=== PATIENT | female | born 2000 | race African-American/Black ===

== ENCOUNTER 2021-12-31 22:16 | Emergency (ER) | payer BC, MEDICAID ==
[~2021-12-31] VITALS: Ht 170.2 cm; Wt 69.4 kg
[2021-12-31 22:53] LABS: HEMOGLOBIN 15.6 g/dL (11.5-16.0); MEAN PLATELET VOLUME 13.2 fL (9.0-12.2)
[2021-12-31 22:54] LABS: BASOPHILS % (AUTO) 0 % (0-10); EOSINOPHILS % (AUTO) 0 % (0-10); HEMATOCRIT 45 % (35-52); LYMPHOCYTES # (AUTO) 2.6 10^3/uL (1.0-4.0); LYMPHOCYTES % (AUTO) 24 % (12-44); MEAN CORPUSCULAR HEMOGLOBIN 30 pg (25-34); MEAN CORPUSCULAR HGB CONC 35 g/dL (32-36); MEAN CORPUSCULAR VOLUME 85 fL (80-99); MONOCYTES # (AUTO) 0.6 10^3/uL (0.0-1.0); MONOCYTES % (AUTO) 5 % (0-12); NEUTROPHILS # (AUTO) 7.3 10^3/uL (1.8-7.8); NEUTROPHILS % (AUTO) 69 % (42-75); PLATELET COUNT 231 10^3/uL (130-400); WHITE BLOOD COUNT 10.6 10^3/uL (4.3-11.0)
[2021-12-31 22:56] LABS: BILIRUBIN,URINE NEGATIVE (NEGATIVE); CLARITY,URINE CLEAR; COLOR,URINE YELLOW; GLUCOSE, URINE (UA) NEGATIVE (NEGATIVE); KETONES,URINE 2+ (NEGATIVE); LEUKOCYTE ESTERASE ,URINE NEGATIVE (NEGATIVE); NITRITE,URINE NEGATIVE (NEGATIVE); PROTEIN,URINE NEGATIVE (NEGATIVE)
[2021-12-31 22:58] LABS: ALBUMIN 4.8 GM/DL (3.2-4.5); CHLORIDE 97 MMOL/L (98-107); POTASSIUM 3.2 MMOL/L (3.6-5.0); SODIUM 134 MMOL/L (135-145)
[2021-12-31 23:00] LABS: AMYLASE 105 U/L (25-125); CALCIUM 9.9 MG/DL (8.5-10.1)
[2021-12-31] MEDS ORDERED: LACTATED RINGERS 1,000 ML IV ONE (23:00)
[2021-12-31] MEDS ORDERED: ONDANSETRON 4 MG/2 ML (SDV) Z0FRAN IVP ONE (23:00)
[2021-12-31 23:01] LABS: GLUCOSE 117 MG/DL (70-105); TOTAL PROTEIN 7.8 GM/DL (6.4-8.2)
[2021-12-31 23:02] LABS: CARBON DIOXIDE 22 MMOL/L (21-32)
[2021-12-31 23:03] LABS: BILIRUBIN,TOTAL 0.7 MG/DL (0.1-1.0)
[2021-12-31 23:04] LABS: ALKALINE PHOSPHATASE 76 U/L (40-136)
[2021-12-31 23:05] LABS: CREATININE SERUM 1.11 MG/DL (0.60-1.30); GFR ESTIMATED 72
[2021-12-31 23:06] LABS: BUN/CREATININE RATIO 9
[2021-12-31 23:07] LABS: MAGNESIUM 2.3 MG/DL (1.6-2.4)
[2021-12-31 23:08] LABS: ALANINE AMINOTRANSFERASE 24 U/L (0-55)
[2021-12-31 23:09] LABS: LIPASE 93 U/L (8-78)
[2021-12-31 23:12] LABS: AMPHETAMINE SCREEN, URINE NEGATIVE (NEGATIVE); BARBITURATE SCREEN URINE NEGATIVE (NEGATIVE); BENZODIAZEPINES SCREEN URINE NEGATIVE (NEGATIVE); CANNABINOID SCREEN, URINE POSITIVE (NEGATIVE); COCAINE SCREEN URINE NEGATIVE (NEGATIVE); METHADONE STAT NEGATIVE (NEGATIVE); METHAMPHETAMINE SCREEN URINE S NEGATIVE (NEGATIVE); OPIATE SCREEN URINE NEGATIVE (NEGATIVE); OXYCODONE STAT NEGATIVE (NEGATIVE); PROPOXYPHENE STAT NEGATIVE (NEGATIVE); TRICYCLIC ANTIDEPRESSANTS SCRE NEGATIVE (NEGATIVE)
[2021-12-31 23:12] LABS: ACETAMINOPHEN < 10 UG/ML (10-30)
[2021-12-31 23:23] LABS: BACTERIA,URINE TRACE /HPF; RBC,URINE 0-2 /HPF
--- NOTE | 2021-12-31 23:29 | ED GI ---
General Chief Complaint: Abdominal/GI Problems Stated Complaint: N/V Nursing Triage Note: PT AMB TO RM 8 ALONGSIDE MOTHER. PT C/O UPPER ABD PAIN, AND N/V X5-6 DAYS. PT REPORTS SHE CANT KEEP ANY FOOD/DRINKS DOWN, LAST VOMITED AT 0400 TODAY, LAST BM 3 DAYS AGO. PT HAS APPT W GI SPECIALIST ON MONDAY, CURRENTLY DX W GASTROPARESIS. PT A&OX4. Source of Information: Patient, Other (MOM) History of Present Illness Date Seen by Provider: Dec 31, 2021 Time Seen by Provider: 22:43 Initial Comments PT ARRIVES VIA POV FROM HOME WITH MOM--DROVE HERE FROM [place] C/O NAUSEA AND VOMITING AND EPIGASTRIC PAIN "EVERY SINCE I HAD MY IN 2019" STATES SHE "CAN'T EAT OR DRINK OR KEEP ANYTHING DOWN FOR THE LAST 5-6 DAYS" BUT ALSO STATES SHE "CAN'T EAT OR DRINK OR KEEP ANYTHING DOWN" SINCE 2019 SYMPTOMS ARE NO DIFFERENT TONIGHT IN ANY WAY HAS VOMITED X 2 TODAY--LAST EMESIS WAS AT 0400 THIS AM. STATES SHE HAS BEEN SIPPING ON WATER AND BODY ARMOUR DRINKS AND HAD A FEW BITES OF APPLESAUCE NO DIARRHEA PAIN IS MOSTLY WHEN SHE TRIES TO EAT OR DRINK ANYTHING NO FEVER PT IS VOIDING A NORMAL AMOUNT AND NO URINARY SYMPTOMS LAST BM 4-5 DAYS AGO--NORMAL FOR PT STATES SHE HAS LOST A TOTAL OF 12 LBS SINCE THIS STARTED PT STATES SHE "DOESN'T HAVE A REGULAR DR" --HAS SEEN A JAIME MAGUIRE AT [facility] IN [place] PT STATES SHE JUST GOES TO ER'S ALL THE TIME FOR THIS PROBLEM--HAS BEEN TO [facility], [place] ER MULTIPLE TIMES FOR THIS PT WENT TO [facility] ER IN [place] LAST WEEKEND FOR THIS STATES "NO ONE CAN FIGURE IT OUT" --STATES SHE HAS BEEN DIAGNOSED WITH "GASTROPARESIS" PT STATES SHE HAS AN APPOINTMENT WITH AN UNKNOWN GI SPECIALIST ON Monday01/04/22 --CAN'T REMEMBER NAME OF DR OR WHERE THE APPOINTMENT IS. STATES SHE HAD AN EGD "LAST YEAR SOMETIME" BUT UNKNOWN DR AT [facility] OR [facility]--CAN'T REMEMBER WHERE OR EXACTLY WHEN THIS WAS DONE PT STATES SHE HAS BEEN TAKING REGLAN FOR THIS--BOTTLE FILLED ON 12/29/21, WRITTEN BY HEMODIALYSIS CHARGE NURSE D. ANDREZ PT ALSO BRINGS IN RX'S FOR CIPRO AND FLAGYL PRESCRIBED ON 12/26/21--PT DOES NOT KNOW WHAT SHE WAS DIAGNOSED WITH--WH[facility] SE[facility] . STATES SHE DOES NOT TAKE ANY OTHER MEDICATIONS ON A DAILY BASIS EXCEPT REGLAN, AND DENIES HAVING ANY NAUSEA MEDICATIONS ON MED RECONCILIATION, PT WAS ALSO PRESCRIBED ZOFRAN AND METOPROLOL ON 12/26/21 WHEN SEEN AT [facility]. LMP--BEGAN YESTERDAY. STATES SHE HAD A NORMAL PERIOD 12/21/21 X 3 DAYS. PERIODS NORMALLY ONLY LAST 3 DAYS. NO CONTROL NO PRIOR DOCUMENT CONTROLLER OR PROBLEMS DENIES ANY OTHER MEDICAL PROBLEMS Allergies and Home Medications Allergies Coded Allergies: Sulfa (Sulfonamides) (Unverified Allergy, Mild, 10/05/09) Patient Home Medication List Capsaicin (Capsaicin) 60 Gm Cream..g., 60 GM TP TID Prescribed by: AMAIRANI MORGAN on 01/01/22101 Ondansetron (Ondansetron Odt) 8 Mg Tab.rapdis, 8 MG PO Q6H Prescribed by: AMAIRANI MORGAN on 01/01/22101 Pantoprazole Sodium (Protonix) 40 Mg Tablet.dr, 40 MG PO DAILY Prescribed by: AMAIRANI MORGAN on 01/01/22101 Promethazine HCl (Promethazine Suppository) 25 Mg Supp.rect, 25 MG RC Q6 Prescribed by: AMAIRANI MORGAN on 01/01/22101 Sucralfate (Carafate) 1 Gm Tablet, 1 GM PO QID Prescribed by: AMAIRANI MORGAN on 01/01/22101 Review of Systems Review of Systems Constitutional: no symptoms reported Respiratory: No Symptoms Reported Cardiovascular: No Symptoms Reported Gastrointestinal: See HPI, Abdominal Pain; Denies Constipated, Denies Diarrhea; Nausea, Poor Appetite, Poor Fluid Intake, Vomiting Genitourinary: No Symptoms Reported Musculoskeletal: no symptoms reported Skin: no symptoms reported Psychiatric/Neurological: No Symptoms Reported Endocrine: No Symptoms Reported Hematologic/Lymphatic: No Symptoms Reported Past Rykubvq-Vidhvw-Dnlroc Hx Patient Social History Tobacco Use?: No Use of E-Cig and/or Vaping dev: No Substance use?: No Additional substance use comme: DENIES BUT UDS + FOR MARIJUANA 12/31/21 Alcohol Use?: Yes Alcohol Frequency: Once in a while Immunizations Up To Date Influenza Vaccine Up-to-Date: Yes; Up-to-Date First/Initial COVID19 Vaccinat: NONE Second COVID19 Vaccination Jesus: NONE Third COVID19 Vaccination Date: NONE COVID19 Vaccine 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 oz. kg; 23.00 BMI Method: General Appearance: WD/WN, no apparent distress, other (PT SMILING, SITTING -STYLE AND TEXTING ON PHONE. WALKS UPRIGHT AND MOVES WITHOUT DIFFICULTY DOES NOT APPEAR ILL OR TO BE IN ANY DISCOMFORT OR DISTRESS. ) Respiratory: normal breath sounds, no respiratory distress, no accessory muscle use Cardiovascular: regular rate, rhythm, no murmur Gastrointestinal: normal bowel sounds, non tender, soft, no organomegaly, no pulsatile mass Extremities: normal inspection Back: no CVA tenderness Neurologic/Psychiatric: sail repairer II-XII nml as tested, no motor/sensory deficits, alert, normal mood/affect, oriented x 3 Skin: normal color, warm/dry; No rash; other (OLD ADHESIVE RESIDUE FROM MONITOR LEADS NOTED ON CHEST AND ABDOMEN. ) Progress/Results/Core Measures Results/Orders Lab Results Laboratory Tests Test 12/31/21 22:30 12/31/21 22:45 Range/Units White Blood Count 10.6 4.3-11.0 10^3/uL Red Blood Count 5.28 H 3.80-5.11 10^6/uL Hemoglobin 15.6 11.5-16.0 g/dL Hematocrit 45 35-52 % Mean Corpuscular Volume 85 80-99 fL Mean Corpuscular Hemoglobin 30 25-34 pg Mean Corpuscular Hemoglobin Concent 35 32-36 g/dL Red Cell Distribution Width 13.0 10.0-14.5 % Platelet Count 231 130-400 10^3/uL Mean Platelet Volume 13.2 H 9.0-12.2 fL Immature Granulocyte % (Auto) 0 % Neutrophils (%) (Auto) 69 42-75 % Lymphocytes (%) (Auto) 24 12-44 % Monocytes (%) (Auto) 5 0-12 % Eosinophils (%) (Auto) 0 0-10 % Basophils (%) (Auto) 0 0-10 % Neutrophils # (Auto) 7.3 1.8-7.8 10^3/uL Lymphocytes # (Auto) 2.6 1.0-4.0 10^3/uL Monocytes # (Auto) 0.6 0.0-1.0 10^3/uL Eosinophils # (Auto) 0.0 0.0-0.3 10^3/uL Basophils # (Auto) 0.0 0.0-0.1 10^3/uL Immature Granulocyte # (Auto) 0.0 0.0-0.1 10^3/uL Percent Immature Platelet Fraction 12.7 H 0.0-7.6 % Sodium Level 134 L 135-145 MMOL/L Potassium Level 3.2 L 3.6-5.0 MMOL/L Chloride Level 97 L 98-107 MMOL/L Carbon Dioxide Level 22 21-32 MMOL/L Anion Gap 15 H 5-14 MMOL/L Blood Urea Nitrogen 10 7-18 MG/DL Creatinine 1.11 0.60-1.30 MG/DL Estimat Glomerular Filtration Rate 72 BUN/Creatinine Ratio 9 Glucose Level 117 H 70-105 MG/DL Calcium Level 9.9 8.5-10.1 MG/DL Corrected Calcium 8.5-10.1 MG/DL Magnesium Level 2.3 1.6-2.4 MG/DL Total Bilirubin 0.7 0.1-1.0 MG/DL Aspartate Amino Transf (AST/SGOT) 27 5-34 U/L Alanine Aminotransferase (ALT/SGPT) 24 0-55 U/L Alkaline Phosphatase 76 40-136 U/L Total Protein 7.8 6.4-8.2 GM/DL Albumin 4.8 H 3.2-4.5 GM/DL Amylase Level 105 25-125 U/L Lipase 93 H 8-78 U/L Acetaminophen Level < 10 L 10-30 UG/ML Serum Alcohol < 10 <10 MG/DL Urine Color YELLOW Urine Clarity CLEAR Urine pH 6.0 5-9 Urine Specific [place] 1.015 L 1.016-1.022 Urine Protein NEGATIVE NEGATIVE Urine Glucose (UA) NEGATIVE NEGATIVE Urine Ketones 2+ H NEGATIVE Urine Nitrite NEGATIVE NEGATIVE Urine Bilirubin NEGATIVE NEGATIVE Urine Urobilinogen 0.2 < = 1.0 MG/DL Urine Leukocyte Esterase NEGATIVE NEGATIVE Urine RBC (Auto) 2+ H NEGATIVE Urine RBC 0-2 /HPF Urine WBC NONE /HPF Urine Squamous Epithelial Cells 2-5 /HPF Urine Crystals NONE /LPF Urine Bacteria TRACE /HPF Urine Casts NONE /LPF Urine Mucus SMALL H /LPF Urine Culture Indicated NO Urine Opiates Screen NEGATIVE NEGATIVE Urine Oxycodone Screen NEGATIVE NEGATIVE Urine Methadone Screen NEGATIVE NEGATIVE Urine Propoxyphene Screen NEGATIVE NEGATIVE Urine Barbiturates Screen NEGATIVE NEGATIVE Ur Tricyclic Antidepressants Screen NEGATIVE NEGATIVE Urine Phencyclidine Screen NEGATIVE NEGATIVE Urine Amphetamines Screen NEGATIVE NEGATIVE Urine Methamphetamines Screen NEGATIVE NEGATIVE Urine Benzodiazepines Screen NEGATIVE NEGATIVE Urine Cocaine Screen NEGATIVE NEGATIVE Urine Cannabinoids Screen POSITIVE H NEGATIVE My Orders Orders - AMAIRANI MORGAN DO Urine Bedside (12/31/21 22:43) Drug Screen Stat (Urine) (12/31/21 22:43) Ua Culture If Indicated (12/31/21 22:43) Ed Iv/Invasive Line Start (12/31/21 22:47) Acetaminophen (12/31/21 22:47) Alcohol (12/31/21 22:47) Amylase (12/31/21 22:47) Cbc With Automated Diff (12/31/21 22:47) Comprehensive Metabolic Panel (12/31/21 22:47) Lipase (12/31/21 22:47) Magnesium (12/31/21 22:47) Ondansetron Injection (Zofran Injectio (12/31/21 23:00) Ed Iv/Invasive Line Start (12/31/21 22:47) Lactated Ringers (Lr 1000 Ml Iv Solution (12/31/21 23:00) Ct Abdomen/Pelvis W (12/31/21 23:16) Iohexol Injection (Omnipaque 350 Mg/Ml 1 (12/31/21 23:45) Received Contrast (Hold Metformin- Contr (12/31/21 23:45) Sodium Chloride Flush (Catheter Flush Sy (12/31/21 23:45) Ns (Ivpb) (Sodium Chloride 0.9% Ivpb Bag (12/31/21 23:45) Medications Given in ED Current Medications Medications Dose Ordered Sig/Get Route Start Time Stop Time Status Last Admin Dose Admin Iohexol 100 ml ONCE ONCE IV 12/31/21 23:45 12/31/21 23:46 DC 12/31/21 23:47 87 ML Lactated Ringer's 1,000 ml @ 0 mls/hr Q0M ONCE IV 12/31/21 23:00 12/31/21 23:01 DC 12/31/21 22:56 0 MLS/HR Ondansetron HCl 4 mg ONCE ONCE IVP 12/31/21 23:00 12/31/21 23:01 DC 12/31/21 22:56 4 MG Sodium Chloride 10 ml NEEDED PRN IV 12/31/21 23:45 12/31/21 23:47 10 ML Sodium Chloride 100 ml ONCE ONCE IV 12/31/21 23:45 12/31/21 23:46 DC 12/31/21 23:47 80 ML Vital Signs/I&O 12/31/21 22:26 Temp 36.2 Pulse 89 Resp 20 B/P (MAP) 140/113 (122) Pulse Ox 99 O2 Delivery Room Air Blood Pressure Mean: 122 Progress Progress Note : Progress Note GIVEN IV FLUIDS NO VOMITING OR PAIN DURING ER STAY DISCUSSION WITH PT AND MOTHER REGARDING FOLLOW UP, ESTABLISHING WITH A PRIMARY CARE DRDorian ETC. MOM AND PT REPORT "THERE'S NO ONE ANYWHERE AROUND THAT WE TRUST" Departure Impression Primary Impression: CHRONIC EPIGASTRIC PAIN WITH NAUSEA AND VOMITING Additional Impressions: Marijuana use POSSIBLE CANNABIS HYPEREMESIS SYNDROME Constipation Disposition: 01 HOME, SELF-CARE Condition: Stable Departure-Patient Inst. Decision time for Depature: 00:50 Referrals: NO,LOCAL PHYSICIAN (PCP/Family) Primary Care Physician Patient Instructions: Abdominal Pain, Adult ED, Cannabis Hyperemesis Syndrome, Constipation, Adult (DC), Nausea and Vomiting, Adult (DC) Add. Discharge Instructions: CONTINUE REGLAN PRESCRIBED LOTS OF CLEAR LIQUIDS, SIPS AT A TIME--WATER, BROTH, JELLO, GATORADE NO MARIJUANA TAKE MIRALAX DAILY--YOU MAY USE EVERY 1-2 HOURS UNTIL YOU HAVE A BM, THEN USE DAILY KEEP YOUR APPOINTMENT WITH GI SPECIALIST ON MONDAY. KEEP YOUR OTHER SPECIALIST APPOINTMENTS SCHEDULED FOLLOW UP WITH A REGULAR DR FOR ROUTINE MEDICAL CARE All discharge instructions reviewed with patient and/or family. Voiced understanding. Scripts Pantoprazole Sodium (Protonix) 40 Mg Tablet.dr 40 MG PO DAILY, #15 TAB Prov: AMAIRANI MORGAN DO 01/01/22 Promethazine HCl (Promethazine Suppository) 25 Mg Supp.rect 25 MG RC Q6 for Nausea/Vomiting, #10 SUPP.RECT Prov: AMAIRANI MORGAN DO 01/01/22 Ondansetron (Ondansetron Odt) 8 Mg Tab.rapdis 8 MG PO Q6H, #10 TAB Prov: AMAIRANI MORGAN DO 01/01/22 Capsaicin (Capsaicin) 60 Gm Cream..g. 60 GM TP TID for Nausea/Vomiting, #1 TUBE Prov: AMAIARNI MORGAN DO 01/01/22 Sucralfate (Carafate) 1 Gm Tablet 1 GM PO QID, #60 TAB Prov: AMAIRANI MORGAN DO 01/01/22 AMAIRANI MORGAN DO Dec 31, 2021 23:29
[2021-12-31] MEDS ORDERED: NS 100 ML (IVPB) BAG IV ONE (23:45)
[2021-12-31] MEDS ORDERED: CATHETER FLUSH 10 ML SYR IV PRN (23:45)
[2021-12-31] MEDS ORDERED: IOHEXOL 350 MG/ML 100 ML (OMNIPAQUE 350) VIAL IV ONE (23:45)
[2021-12-31] MEDS ORDERED: HOLD METFORMIN - RECEIVED CONTRAST 20 ML VIAL IV SCH (23:45)
[2022-01-01] MEDS ORDERED: ONDA8TAB13 PO (01:02)
[2022-01-01] MEDS ORDERED: SUCR1TAB36 PO (01:02)
[2022-01-01] MEDS ORDERED: PANT40TA2 PO (01:02)
[2022-01-01] MEDS ORDERED: CAPS60CR4 TP (01:02)
[2022-01-01] MEDS ORDERED: PROM25SU44 RC (01:02)
[2022-01-01 01:08] VITALS: BP 132/78
--- NOTE | 2022-01-01 07:07 | Diagnostic Imaging Report ---
PROCEDURE: CT abdomen and pelvis with contrast. TECHNIQUE: Multiple contiguous axial images were obtained through the abdomen and pelvis after administration of intravenous contrast. Auto Exposure Controls were utilized during the CT exam to meet ALARA standards for radiation dose reduction. All CT scans use one or more of the following dose optimizing techniques: automated exposure control, MA and/or KvP adjustment based on patient size and exam type or iterative reconstruction. INDICATION: 21-year-old female, epigastric pain with nausea and vomiting. CORRELATION STUDY: None. FINDINGS: LOWER THORAX: Clear. LIVER: Unremarkable. GALLBLADDER: Present and unremarkable. No bile duct dilatation. SPLEEN: Unremarkable. PANCREAS: Unremarkable. ADRENAL GLANDS: Unremarkable. KIDNEYS: Normal configuration. No calcification or obstruction. ABDOMINAL AORTA: Unremarkable, nonaneurysmal. GASTROINTESTINAL TRACT: Stomach mildly distended with gas and fluid. Slightly folded on itself proximally. No small bowel obstruction. There is mild distention of the colon with mild stool retention. Partially visualized appendix unremarkable. No abdominal ascites and/or free air. High density contents in the distal colon could reflect of contrast. URINARY BLADDER: Unremarkable. REPRODUCTIVE: Vaginal tampon. Uterus and adnexa otherwise unremarkable. Trace pelvic fluid within physiologic range. OSSEOUS STRUCTURES: No acute abnormality. OTHER: None. IMPRESSION: 1. Negative for acute abnormality of the abdomen or pelvis. Dictated by: Dictated on workstation # [id number]
== END 2022-01-01 01:11 | disposition home or self-care (01) ==
LOC: EDUNIT# 22:16 → ER 22:19
DX: K59.00 Constipation, unspecified (principal); R11.2 Nausea with vomiting, unspecified; G89.29 Other chronic pain; F12.90 Cannabis use, unspecified, uncomplicated
CPT/HCPCS: 74177; 80053; 80306; 81000; 82150; 83690; 83735; 84703; 85025; 99284; G0480 ×2; 36415; 80320; 80329

== ENCOUNTER 2022-06-21 11:56 | Emergency (ER) | payer BC, MEDICAID ==
[~2022-06-21] VITALS: Ht 173 cm; Wt 67.0 kg
[~2022-06-21 11:56] MED LIST: CAPS60CR4 TP; ONDA8TAB13 PO; PANT40TA2 PO; PROM25SU44 RC; SUCR1TAB36 PO
--- NOTE | 2022-06-21 12:35 | ED General ---
General Chief Complaint: Abdominal/GI Problems Stated Complaint: ABD PAIN,N/V,CONSTIPATION Nursing Triage Note: PT STATES UPPER ABD PAIN AND VOMITING FOR ABOUT A WEEK, CONSTIPATION Source of Information: Patient, Family (father) (JASMIN PHILIP MED STUDENT) History of Present Illness Date Seen by Provider: Jun 21, 2022 Time Seen by Provider: 12:15 Initial Comments Marilyn Culp is a 22 yo female who presents for epigastric pain, vomiting and constipation. Pt has hx abdominal pain since an emergency c/s in 2018 for distress. She states she has seen multiple providers and taken multiple medications with no relief. She has epigastric and left sided abdominal pain that is throbbing and she rates a 5/10 currently. The pain is intermittent and sometimes goes away for several weeks then reappears. The current episode of epi gastric pain has been ongoing for the last week. She has associated nausea, vomiting and constipation. She states she has not had a BM in one week. Yesterday she was seen at the ER in [place] and was told to take mag citrate, but this is currently recalled. She was also told her potassium was low, so she was sent potassium tablets to pharmacy. Pt has tried miralax and three suppositories with no relief. She has also tried zainab seltzer for her nausea, but has been unable to keep solids or liquids down for the last week. She states she had an EGD in [place] about a year ago and was told she "digests things slow". She provided a list of medications she has tried for her epigastric pain which included ondansetron, sucralfate, metronidazole, ciprofloxacin, pantoprazole, promethegan and omeprazole. Pt denies fever, chills, recent illness or change in diet, headache, blurry vision, dysuria, frequency, numbness or weakness. Timing/Duration: 1 Week, Intermittent Severity: Moderate Modifying Factors: worse with Eating Associated Systoms: Loss of Appetite, Nausea/Vomiting (JASMIN PHILIP MED STUDENT) Allergies and Home Medications Allergies Coded Allergies: Sulfa (Sulfonamides) (Unverified Allergy, Mild, 10/05/09) Patient Home Medication List Home Medication List Reviewed: Yes (TRAY RILEY MD) Capsaicin (Capsaicin) 60 Gm Cream..g., 60 GM TP TID Prescribed by: AMAIRANI WILLIAM on 01/01/22101 Ondansetron (Ondansetron Odt) 8 Mg Tab.rapdis, 8 MG PO Q6H Prescribed by: AMAIRANI WILLIAM on 01/01/22101 Pantoprazole Sodium (Protonix) 40 Mg Tablet.dr, 40 MG PO DAILY Prescribed by: AMAIRANI WILLIAM on 01/01/22101 Peg/Electrolytes (Golytely Solution) 236-22.74G Soln, 2,000 ML PO ONCE Prescribed by: TRAY RILEY on 06/21/22 1411 Promethazine HCl (Promethazine Suppository) 25 Mg Supp.rect, 25 MG RC Q6 Prescribed by: AMAIRANI WILLIAM on 01/01/22101 Sucralfate (Carafate) 1 Gm Tablet, 1 GM PO QID Prescribed by: AMAIRANI WILLIAM on 01/01/22101 Review of Systems Review of Systems Constitutional: No chills; dizziness; No fever EENTM: No blurred vision, No vision loss Cardiovascular: No chest pain, No palpitations Gastrointestinal: abdominal pain, constipation; No diarrhea; loss of appetite, nausea, vomiting Genitourinary: No dysuria, No frequency Musculoskeletal: No back pain, No muscle pain Skin: No lesions, No lumps, No rash Psychiatric/Neurological: Denies Headache, Denies Numbness, Denies Weakness Hematologic/Lymphatic: No Symptoms Reported Immunological/Allergic: no symptoms reported (JASMIN PHILIP) Past Ajbikuz-Wgkpqp-Tdgyfa Hx Patient Social History Tobacco Use?: No Substance use?: Yes Substance type: Marijuana Alcohol Use?: No (JASMIN PHILIP) Immunizations Up To Date First/Initial COVID19 Vaccinat: NONE Second COVID19 Vaccination Jesus: NONE Third COVID19 Vaccination Date: NONE (JASMIN PHILIP STUDENT) Past Medical History Surgery/Hospitalization HX: ABD PAIN IN THE PAST, C SECTION Surgeries: Yes (EGD; X 1) Section Respiratory: No Cardiac: No Neurological: No Last Menstrual Period: Jun 14, 2022 (JASMIN PHILIP STUDENT) Physical Exam Vital Signs Vital Signs - First Documented 06/21/22 12:01 Temp 36.7 Pulse 81 Resp 18 B/P (MAP) 149/76 (100) Pulse Ox 100 O2 Delivery Room Air (TRAY RILEY MD) Vital Signs Capillary Refill : Less Than 3 Seconds (JASMIN PHILIP MED STUDENT) Height, Weight, BMI Height: '" Weight: lbs. oz. kg; 22.00 BMI Method: General Appearance: No Apparent Distress, WD/WN HEENT: PERRL/EOMI, Other (dry mucous membranes) Neck: Full Range of Motion, Normal Inspection Respiratory: Chest Non Tender, Lungs Clear, Normal Breath Sounds Cardiovascular: Regular Rate, Rhythm, No Murmur Gastrointestinal: Abnormal Bowel Sounds (hypoactive bowel sounds), Tenderness (epigastric and LUQ) Extremity: Normal Inspection, Non Tender, No Pedal Edema Neurologic/Psychiatric: Alert, Oriented x3, Normal Mood/Affect Skin: Normal Color, Warm/Dry Lymphatic: No Adenopathy (JASMIN PHILIP A MED STUDENT) Focused Exam Lactate Level 06/21/22 13:45: Lactic Acid Level 1.81 (TRAY RILEY MD) Lactic Acid Level Laboratory Tests Test 06/21/22 13:45 Lactic Acid Level 1.81 MMOL/L (0.50-2.00) (TRAY RILEY MD) Progress/Results/Core Measures Suspected Sepsis SIRS Temperature: Pulse: 81 Respiratory Rate: 18 Blood Pressure 149 /76 Mean: 100 Laboratory Tests 06/21/22 12:20: (JASMIN PHILIP MED STUDENT) Results/Orders Lab Results Laboratory Tests Test 06/21/22 12:20 06/21/22 13:45 Range/Units Sodium Level 138 135-145 MMOL/L Potassium Level 3.3 L 3.6-5.0 MMOL/L Chloride Level 100 98-107 MMOL/L Carbon Dioxide Level 17 L 21-32 MMOL/L Anion Gap 21 H 5-14 MMOL/L Blood Urea Nitrogen 19 H 7-18 MG/DL Creatinine 1.23 0.60-1.30 MG/DL Estimat Glomerular Filtration Rate 63 BUN/Creatinine Ratio 15 Glucose Level 83 70-105 MG/DL Calcium Level 9.7 8.5-10.1 MG/DL Corrected Calcium 8.5-10.1 MG/DL Total Bilirubin 0.9 0.1-1.0 MG/DL Aspartate Amino Transf (AST/SGOT) 25 5-34 U/L Alanine Aminotransferase (ALT/SGPT) 30 0-55 U/L Alkaline Phosphatase 70 40-136 U/L Total Protein 8.5 H 6.4-8.2 GM/DL Albumin 4.9 H 3.2-4.5 GM/DL Lipase 16 8-78 U/L Serum Test, Qualitative NEGATIVE NEGATIVE Lactic Acid Level 1.81 0.50-2.00 MMOL/L (TRAY RILEY MD) My Orders Orders - TRAY RILEY MD Ed Iv/Invasive Line Start (06/21/22 12:58) Comprehensive Metabolic Panel (06/21/22 12:58) Lipase (06/21/22 12:58) Hcg,Qualitative Serum (06/21/22 12:58) Ns Iv 1000 Ml (Sodium Chloride 0.9%) (06/21/22 13:00) Metoclopramide Injection (Reglan Injecti (06/21/22 13:00) Diphenhydramine Injection (Benadryl Inje (06/21/22 13:00) Lactic Acid Analyzer (06/21/22 13:26) Lactated Ringers (Lr 1000 Ml Iv Solution (06/21/22 13:30) (TRAY RILEY MD) Medications Given in ED Current Medications Medications Dose Ordered Sig/Get Route Start Time Stop Time Status Last Admin Dose Admin Diphenhydramine HCl 25 mg ONCE ONCE IVP 06/21/22 13:00 06/21/22 13:02 DC 06/21/22 13:10 25 MG Metoclopramide HCl 5 mg ONCE ONCE IVP 06/21/22 13:00 06/21/22 13:02 DC 06/21/22 13:10 5 MG (TRAY RILEY MD) Vital Signs/I&O 06/21/22 12:01 Temp 36.7 Pulse 81 Resp 18 B/P (MAP) 149/76 (100) Pulse Ox 100 O2 Delivery Room Air (TRAY RILEY MD) Vital Signs/I&O Capillary Refill : Less Than 3 Seconds (JASMIN PHILIP MED STUDENT) Blood Pressure Mean: 100 Progress Note : Time: 12:58 Progress Note Will start IV fluids and order CMP to check potassium. 1312: K+ 3.3. (JASMIN PHILIP MED STUDENT) Progress Note : Time: 14:02 Progress Note 22yo female to the ER with chronic epigastric discomfort and nausea. Last ER visit was in December of 2021. Per patient's report she has been to multiple ER's. It doesnt sound like she has stuck with one provider for any type of consistent work up. She has been on multiple anti-nausea medications and states that they don't really work. SHe does smoke THC - initially states "several times a week" but is vague about actual amounts. Then states "it has been a few weeks" since she smoked. SHe claimed to not know of cannabis hyperemesis syndrome - although her note from visit in December clearly reflect Dr William talked to her about this. No prior abdominal surgeries other than a . no f/c. she does complain of constipation (but has had poor appetite). some liquid stool. Was seen in [place], [place] ED last night. Rx for protonix. Needs a PCP and further work up and possibly referral to GI. Has been told in the past she has "gastroparesis". Home with another rx of reglan as she states the reglan, benadryl combo given today has made her feel better. labs reassuring. exam benign. (TRAY RILEY MD) Departure Impression Primary Impression: Epigastric abdominal tenderness Qualified Codes: R10.826 - Epigastric rebound abdominal tenderness Additional Impression: Chronic nausea Disposition: 01 HOME, SELF-CARE Condition: Improved Departure-Patient Inst. Decision time for Depature: 14:07 (TRAY RILEY MD) Referrals: [facility],LOCAL PHYSICIAN (PCP) Primary Care Physician Add. Discharge Instructions: You need find a primary care doctor so they can do a full work up of your stomach pain (further labs such as thyroid function, B12 levels - that the ER cannot do) and possibly send you to a specialist if you need one. Drink gatorade or other electrolyte drinks as well as water to stay hydrated. [place] foods to start today - nothing heavy or spicy or greasy. Take reglan pills if you have nausea. with one benadryl every 6 hours. Stop marijuana use. It can cause persistent vomiting and upset stomach. Take the potassium tablets that were sent to the pharmacy by the [place] ER provider. Go-Lytely, 1/2 gallon tonight while at home to help clean out your colon. Drink water with this to stay hydrated. It can cause some mild abdominal cramping. Return to the Emergency Department for any fevers, worsening pain, bloody stools or vomit, or any other emergent, concerning symptoms. Scripts Peg/Electrolytes (Golytely Solution) 236-22.74G Soln 2000 ML PO ONCE, #4000 EA Prov: TRAY RILEY MD 06/21/22 Verification and Attestation of Medical Student E/M Service A medical student performed and documented this service in my presence. I reviewed and verified all information documented by the medical student and made modifications to such information, when appropriate. I personally performed the physical exam and medical decision making. Tray Riley, Jun 21, 2022,14:11 (TRAY RILEY MD) JASMIN PHILIP MED STUDENT Jun 21, 2022 12:35 TRAY RILEY MD Jun 21, 2022 14:10
[2022-06-21] MEDS ORDERED: diphenhydrAMINE 50 MG/ML INJ (BENADRYL) IVP ONE (13:00)
[2022-06-21] MEDS ORDERED: METOCLOPRAMIDE INJ 10 MG/2 ML (REGLAN) IVP ONE (13:00)
[2022-06-21] MEDS ORDERED: NS IV 1000 ML 1,000 ML IV SCH (13:00)
[2022-06-21 13:08] LABS: ALBUMIN 4.9 GM/DL (3.2-4.5)
[2022-06-21 13:09] LABS: CHLORIDE 100 MMOL/L (98-107); POTASSIUM 3.3 MMOL/L (3.6-5.0); SODIUM 138 MMOL/L (135-145)
[2022-06-21 13:10] LABS: CALCIUM 9.7 MG/DL (8.5-10.1)
[2022-06-21 13:11] LABS: GLUCOSE 83 MG/DL (70-105); TOTAL PROTEIN 8.5 GM/DL (6.4-8.2)
[2022-06-21 13:12] LABS: CARBON DIOXIDE 17 MMOL/L (21-32)
[2022-06-21 13:13] LABS: BILIRUBIN,TOTAL 0.9 MG/DL (0.1-1.0)
[2022-06-21 13:15] LABS: ALKALINE PHOSPHATASE 70 U/L (40-136); CREATININE SERUM 1.23 MG/DL (0.60-1.30); GFR ESTIMATED 63
[2022-06-21 13:16] LABS: BUN/CREATININE RATIO 15
[2022-06-21 13:18] LABS: ALANINE AMINOTRANSFERASE 30 U/L (0-55); LIPASE 16 U/L (8-78)
[2022-06-21] MEDS ORDERED: LACTATED RINGERS 1,000 ML IV SCH (13:30)
[2022-06-21] MEDS ORDERED: CLT4KB PO ×2 (14:11→15:11)
[2022-06-21 15:28] VITALS: BP 127/77
== END 2022-06-21 15:28 | disposition home or self-care (01) ==
LOC: EDUNIT# 11:56 → ER 11:58
DX: R10.13 Epigastric pain (principal); R10.12 Left upper quadrant pain; R11.2 Nausea with vomiting, unspecified; Z28.310 Unvaccinated for COVID-19
CPT/HCPCS: 36415; 80053; 83605; 83690; 84703

== ENCOUNTER 2023-08-25 09:55 | Emergency (ER) | payer BC, MEDICAID ==
[~2023-08-25] VITALS: Ht 172 cm; Wt 76.0 kg
[~2023-08-25 09:55] MED LIST changes: +CLT4KB PO
[2023-08-25 10:36] LABS: AMORPHOUS SEDIMENT,UR FEW AMOR URATES /LPF; BACTERIA,URINE NEGATIVE /HPF; BILIRUBIN,URINE 1+ (NEGATIVE); CLARITY,URINE CLEAR; COLOR,URINE YELLOW; GLUCOSE, URINE (UA) NEGATIVE (NEGATIVE); KETONES,URINE 4+ (NEGATIVE); LEUKOCYTE ESTERASE ,URINE NEGATIVE (NEGATIVE); NITRITE,URINE NEGATIVE (NEGATIVE); PH,URINE 5.5 (5-9); PROTEIN,URINE 1+ (NEGATIVE); RBC,URINE RARE /HPF; WBC,URINE 0-2 /HPF
[2023-08-25] MEDS ORDERED: NS IV 1000 ML 1,000 ML IV STA ×2 (11:04→11:51)
[2023-08-25 11:13] LABS: HEMOGLOBIN 13.6 g/dL (11.5-16.0); MONOCYTES # (AUTO) 0.2 10^3/uL (0.0-1.0); MONOCYTES % (AUTO) 2 % (0-12)
[2023-08-25 11:15] LABS: BASOPHILS % (AUTO) 0 % (0-10); EOSINOPHILS % (AUTO) 0 % (0-10); HEMATOCRIT 40 % (35-52); LYMPHOCYTES # (AUTO) 1.3 10^3/uL (1.0-4.0); LYMPHOCYTES % (AUTO) 12 % (12-44); MEAN CORPUSCULAR HEMOGLOBIN 30 pg (25-34); MEAN CORPUSCULAR HGB CONC 34 g/dL (32-36); MEAN CORPUSCULAR VOLUME 87 fL (80-99); NEUTROPHILS # (AUTO) 9.4 10^3/uL (1.8-7.8); NEUTROPHILS % (AUTO) 86 % (42-75); PLATELET COUNT 174 10^3/uL (130-400); WHITE BLOOD COUNT 10.9 10^3/uL (4.3-11.0)
[2023-08-25 11:16] LABS: SMEAR SCAN COMMENT YES
[2023-08-25 11:18] LABS: ALBUMIN 4.3 GM/DL (3.2-4.5)
[2023-08-25 11:19] LABS: POTASSIUM 3.2 MMOL/L (3.6-5.0)
[2023-08-25 11:20] LABS: CALCIUM 9.2 MG/DL (8.5-10.1)
[2023-08-25 11:21] LABS: TOTAL PROTEIN 8.1 GM/DL (6.4-8.2)
[2023-08-25 11:23] LABS: BILIRUBIN,TOTAL 0.5 MG/DL (0.1-1.0)
[2023-08-25 11:25] LABS: CREATININE SERUM 0.81 MG/DL (0.60-1.30)
[2023-08-25 11:25] LABS: AMPHETAMINE SCREEN, URINE NEGATIVE (NEGATIVE); BARBITURATE SCREEN URINE NEGATIVE (NEGATIVE); CANNABINOID SCREEN, URINE POSITIVE (NEGATIVE); COCAINE SCREEN URINE NEGATIVE (NEGATIVE); METHADONE STAT NEGATIVE (NEGATIVE); OPIATE SCREEN URINE NEGATIVE (NEGATIVE); OXYCODONE STAT NEGATIVE (NEGATIVE); TRICYCLIC ANTIDEPRESSANTS SCRE NEGATIVE (NEGATIVE)
--- NOTE | 2023-08-25 11:29 | ED Abdominal Pain ---
General Chief Complaint: Abdominal/GI Problems Stated Complaint: ABD PAIN/CONSTIPATION/VOMITING Nursing Triage Note: PT AMB TO RM 9 PT CO OF CONSTIPATION, N/V FOR APPROX 3 DAYS. PT STATES NO BM FOR 4 DAYS. PT IS APPROX 14WEEKS . PT STATES WAS SEEN AT [facility] YESTERDAY FOR SAME CO AND WAS PRESCRIBED REGLAN Source of Information: Patient Exam Limitations: No Limitations (LASHAY CHUA) History of Present Illness Date Seen by Provider: Aug 25, 2023 Time Seen by Provider: 11:26 Initial Comments Patient is a 23-year-old female with a history of constipation who is currently 14 weeks G2, P1 who presents ED with abdominal pain and vomiting. Patient states she started having pain in her upper abdomen and left lower quadrant yesterday. Pain is described as crampy and fairly intermittent. She has had at least 10 episodes of vomiting nonbilious without hematemesis since yesterday. She states her last bowel movement was 5 days ago. Is currently taking MiraLAX, Colace and suppositories. She has had issues with constipation for the past 2 years. There is concern for gastroparesis. She states she feels dehydrated. She is currently following [facility]. [place]rieta at [place]. She is currently on promethazine and recently prescribed Reglan. She denies of any vaginal discharge, vaginal bleeding, pain with urination, frequent urination, fever, chills, chest pain, shortness of breath, headache or dizziness. No history of previous abdominal surgery. Denies history of diabetes or hypertension. (LASHAY CHUA) Allergies and Home Medications Allergies Coded Allergies: Sulfa (Sulfonamides) (Unverified Allergy, Mild, 10/05/09) Patient Home Medication List Home Medication List Reviewed: Yes (LASHAY CHUA) Capsaicin (Capsaicin) 60 Gm Cream..g., 60 GM TP TID Prescribed by: AMAIRANI MORGAN on 01/01/22101 Ondansetron (Ondansetron Odt) 8 Mg Tab.rapdis, 8 MG PO Q6H Prescribed by: AMAIRANI MORGAN on 01/01/22101 Pantoprazole Sodium (Protonix) 40 Mg Tablet.dr, 40 MG PO DAILY Prescribed by: AMAIRANI MROGAN on 01/01/22101 Peg/Electrolytes (Golytely Solution) 236-22.74G Soln, 2,000 ML PO ONCE Prescribed by: TRAY GRAYSON on 06/21/22 1511 Promethazine HCl (Promethazine Suppository) 25 Mg Supp.rect, 25 MG RC Q6 Prescribed by: AMAIRANI MORGAN on 01/01/22101 Sucralfate (Carafate) 1 Gm Tablet, 1 GM PO QID Prescribed by: AMAIRANI MORGAN on 01/01/22101 Review of Systems Review of Systems Constitutional: No chills, No diaphoresis EENTM: No Double Vision, No Eye Pain Respiratory: Denies Cough, Denies Orthopnea Gastrointestinal: Abdominal Pain, Constipated; Denies Diarrhea; Nausea, Vomiting Genitourinary: Denies Burning, Denies Discharge, Denies Drainage, Denies Frequency, Denies Flank Pain, Denies Hematuria Musculoskeletal: No back pain, No joint pain Skin: No change in color, No change in hair/nails (LASHAY CHUA) All Other Systems Reviewed Negative Unless Noted: Yes (LASHAY CHUA) Past Juysetn-Xtvwmb-Fxlaec Hx Patient Social History Tobacco Use?: No Substance use?: No Alcohol Use?: No Pt feels they are or have been: No (LASHAY CHUA) Immunizations Up To Date First/Initial COVID19 Vaccinat: NONE Second COVID19 Vaccination Jesus: NONE Third COVID19 Vaccination Date: NONE (LASHAY CHUA) Past Medical History Surgery/Hospitalization HX: ABD PAIN IN THE PAST, C SECTION Surgeries: Yes (EGD; X 1) Section Respiratory: No Cardiac: No Neurological: No Expected Date of Delivery: February 20, 2024 Last Menstrual Period: May 10, 2023 (LASHAY CHUA) Physical Exam Vital Signs Vital Signs - First Documented 08/25/23 08/25/23 10:10 13:42 Temp 35.4 Pulse 92 Resp 18 B/P (MAP) 118/65 Pulse Ox 99 O2 Delivery Room Air (ERIK ONEIL MD) Vital Signs Capillary Refill : Less Than 3 Seconds (LASHAY CHUA) Height/Weight/BMI Height: '" Weight: lbs. oz. kg; 25.00 BMI Method: General Appearance: WD/WN, no apparent distress HEENT: PERRL/EOMI, normal ENT inspection, TMs normal, pharynx normal Neck: non-tender, full range of motion, supple Respiratory: chest non-tender, lungs clear, normal breath sounds, no respiratory distress, no accessory muscle use Cardiovascular: regular rate, rhythm, no edema, no gallop, no JVD Gastrointestinal: normal bowel sounds, soft, tenderness (Epigastric tenderness, left lower quadrant tenderness. Normal bowel sound throughout. No rebound or guarding.) Extremities: normal range of motion, non-tender, normal inspection, no pedal edema Back: normal inspection, no CVA tenderness Neurologic/Psychiatric: dockmaster II-XII nml as tested, no motor/sensory deficits, alert, normal mood/affect, oriented x 3 Skin: normal color, warm/dry Lymphatic: no adenopathy (LASHAY CHUA) Progress/Results/Core Measures Results/Orders Lab Results Laboratory Tests Test 08/25/23 10:14 08/25/23 11:00 Range/Units Urine Color YELLOW Urine Clarity CLEAR Urine pH 5.5 5-9 Urine Specific [place] 1.020 1.016-1.022 Urine Protein 1+ H NEGATIVE Urine Glucose (UA) NEGATIVE NEGATIVE Urine Ketones 4+ H NEGATIVE Urine Nitrite NEGATIVE NEGATIVE Urine Bilirubin 1+ H NEGATIVE Urine Urobilinogen 0.2 < = 1.0 MG/DL Urine Leukocyte Esterase NEGATIVE NEGATIVE Urine RBC (Auto) NEGATIVE NEGATIVE Urine RBC RARE /HPF Urine WBC 0-2 /HPF Urine Squamous Epithelial Cells 5-10 /HPF Urine Crystals PRESENT H /LPF Urine Amorphous Sediment FEW GANESH URATES H /LPF Urine Bacteria NEGATIVE /HPF Urine Casts NONE /LPF Urine Mucus SMALL H /LPF Urine Culture Indicated NO Urine Opiates Screen NEGATIVE NEGATIVE Urine Oxycodone Screen NEGATIVE NEGATIVE Urine Methadone Screen NEGATIVE NEGATIVE Urine Barbiturates Screen NEGATIVE NEGATIVE Ur Tricyclic Antidepressants Screen NEGATIVE NEGATIVE Urine Phencyclidine Screen NEGATIVE NEGATIVE Urine Amphetamines Screen NEGATIVE NEGATIVE Urine Methamphetamines Screen NEGATIVE NEGATIVE Urine Benzodiazepines Screen NEGATIVE NEGATIVE Urine Cocaine Screen NEGATIVE NEGATIVE Urine Cannabinoids Screen POSITIVE H NEGATIVE White Blood Count 10.9 4.3-11.0 10^3/uL Red Blood Count 4.61 3.80-5.11 10^6/uL Hemoglobin 13.6 11.5-16.0 g/dL Hematocrit 40 35-52 % Mean Corpuscular Volume 87 80-99 fL Mean Corpuscular Hemoglobin 30 25-34 pg Mean Corpuscular Hemoglobin Concent 34 32-36 g/dL Red Cell Distribution Width 14.0 10.0-14.5 % Platelet Count 174 130-400 10^3/uL Mean Platelet Volume 13.0 H 9.0-12.2 fL Immature Granulocyte % (Auto) 1 % Neutrophils (%) (Auto) 86 H 42-75 % Lymphocytes (%) (Auto) 12 12-44 % Monocytes (%) (Auto) 2 0-12 % Eosinophils (%) (Auto) 0 0-10 % Basophils (%) (Auto) 0 0-10 % Neutrophils # (Auto) 9.4 H 1.8-7.8 10^3/uL Lymphocytes # (Auto) 1.3 1.0-4.0 10^3/uL Monocytes # (Auto) 0.2 0.0-1.0 10^3/uL Eosinophils # (Auto) 0.0 0.0-0.3 10^3/uL Basophils # (Auto) 0.0 0.0-0.1 10^3/uL Immature Granulocyte # (Auto) 0.1 0.0-0.1 10^3/uL Percent Immature Platelet Fraction 11.3 H 0.0-7.6 % Sodium Level 135 135-145 MMOL/L Potassium Level 3.2 L 3.6-5.0 MMOL/L Chloride Level 105 98-107 MMOL/L Carbon Dioxide Level 18 L 21-32 MMOL/L Anion Gap 12 5-14 MMOL/L Blood Urea Nitrogen 12 7-18 MG/DL Creatinine 0.81 0.60-1.30 MG/DL Estimat Glomerular Filtration Rate 104 BUN/Creatinine Ratio 15 Glucose Level 92 70-105 MG/DL Calcium Level 9.2 8.5-10.1 MG/DL Corrected Calcium 9.0 8.5-10.1 MG/DL Total Bilirubin 0.5 0.1-1.0 MG/DL Aspartate Amino Transf (AST/SGOT) 24 5-34 U/L Alanine Aminotransferase (ALT/SGPT) 19 0-55 U/L Alkaline Phosphatase 57 40-136 U/L Total Protein 8.1 6.4-8.2 GM/DL Albumin 4.3 3.2-4.5 GM/DL Lipase 26 8-78 U/L Beta-Hydroxybutyrate (Chem panel) 1.09 H 0.00-0.27 MMOL/L Human Chorionic Gonadotropin, Quant [id number] H <5 MIU/ML Smear Scan YES (ERIK ONEIL MD) My Orders Orders - ERIK ONEIL MD Ua Culture If Indicated (08/25/23 10:03) (ERIK ONEIL MD) Medications Given in ED Current Medications Medications Dose Ordered Sig/Get Route Start Time Stop Time Status Last Admin Dose Admin Metoclopramide HCl 10 mg ONCE ONCE IVP 08/25/23 13:00 08/25/23 13:01 DC 08/25/23 13:05 10 MG Potassium Chloride 20 meq ONCE ONCE PO 08/25/23 12:15 08/25/23 12:16 DC 08/25/23 12:33 20 MEQ (ERIK ONEIL MD) Vital Signs/I&O 08/25/23 08/25/23 10:10 13:42 Temp 35.4 Pulse 92 68 Resp 18 18 B/P (MAP) 118/65 Pulse Ox 99 99 O2 Delivery Room Air Room Air (ERIK ONEIL MD) Departure Communication (PCP) Differential diagnoses pain, dehydration, gastritis, cholecystitis, cholelithiasis, appendicitis, constipation. Vomiting with upper and left lower quad abdominal pain since yesterday. Similar type pain for over the past 2 years. She gets waves of abdominal pain with vomiting and decreased bowel movements. History of marijuana use. She is currently 14 weeks . Cardiac activity noted on heart tones 139. No vaginal bleeding, vaginal discharge or urinary symptoms. She Was prescribed Reglan yesterday and has not t aken a dose at this time. CBC, CMP, lipase, urinalysis, beta quant was ordered. She has had an outpatient ultrasound which was positive for intrauterine . . Vomiting with a history of similar type symptoms over the past 2 years. There was concern for gastroparesis. History of marijuana use denies of any use for a year. Epigastric left lower quadrant tenderness. Does not appear in acute distress. Vital signs stable. Urinalysis was negative for infection. Positive ketones and protein. Concern for dehydration. Started on liter fluid. Patient did receive Reglan here as she had some epigastric pain and did improve. No history of previous abdominal surgery. CBC grossly unremarkable. Potassium 3.2. Did receive oral potassium 20 mill equivalent. Beta quant 39,000. With reassuring lab work. Normal kidney function liver function and pancreatic function. Not concern for cholelithiasis, cholecystitis, appendicitis. Not concern for miscarriage at this time. She states she has been constipated over the past 5 days with a known history. Due to difficulty obtaining imaging at this time. I suspect she is probably likely constipated. Since there is no evidence of surgical abdomen. No concern for miscarriage. Vital signs and lab work otherwise reassuring recommend outpatient follow-up with your [facility]. Suggest continue with the laxatives such as MiraLAX, Colace, milk of magnesia, high-fiber diet. Recommend drinking plenty of fluids. she was positive for marijuana which I recommend stopping. If any worsening symptoms such as vomiting or pain to return back to ED. She did receive 2 L of fluid here. Well-hydrated several episodes of urination. (LASHAY CHUA) Impression Primary Impression: Abdominal pain Disposition: HOME, SELF-CARE Condition: Stable Departure-Patient Inst. Decision time for Depature: 13:24 (LASHAY CHUA) Referrals: [facility],LOCAL PHYSICIAN (PCP) Primary Care Physician Patient Instructions: Nausea and Vomiting, Adult Add. Discharge Instructions: Need to take her Reglan. Clear liquids for the next 2 or 3 days. Continue with your MiraLAX, Colax, Metamucil Milk of magnesia. Follow-up with your [facility] for further evaluation. All discharge instructions reviewed with patient and/or family. Voiced understanding. ATTENDING PHYSICIAN NOTE: I was physically present as attending physician in the emergency department during the care of this patient, but I was not directly involved in the decision making or delivery of care for this patient. (ERIK ONEIL MD) LASHAY CHUA Aug 25, 2023 11:29 ERIK ONEIL MD Aug 25, 2023 21:42
[2023-08-25] MEDS ORDERED: POTASSIUM CHLORIDE 20 MEQ TABLET PO ONE (12:15)
[2023-08-25] MEDS ORDERED: METOCLOPRAMIDE INJ 10 MG/2 ML IVP ONE (13:00)
[2023-08-25 13:42] VITALS: BP 118/65
== END 2023-08-25 13:44 | disposition home or self-care (01) ==
LOC: EDUNIT# 09:55 → ER 09:57
DX: O26.892 Other specified pregnancy related conditions, second trimester (principal); O21.9 Vomiting of pregnancy, unspecified; R10.32 Left lower quadrant pain; R10.13 Epigastric pain; R10.10 Upper abdominal pain, unspecified; Z79.899 Other long term (current) drug therapy; Z87.19 Personal history of other diseases of the digestive system; Z3A.14 14 weeks gestation of pregnancy
CPT/HCPCS: 36415; 80053; 80306; 81000; 82010; 83690; 84702; 85025; 96361; 96374